=== PATIENT | female | born 1930 | race African-American/Black ===

== ENCOUNTER 2018-03-13 16:19 | Outpatient (CLI) | payer OTHER ==
[~2018-03-13 16:19] MED LIST: TENORMIN50 MG
== END 2018-03-13 16:32 | disposition home or self-care (01) ==
LOC: LAB 16:19
DX: N28.89 Other specified disorders of kidney and ureter (principal)

== ENCOUNTER 2022-02-05 13:45 | Outpatient (CLI) | payer OTHER | END 2022-02-05 13:59 | disposition home or self-care (01) | LOC: RAD 13:45 | PROVIDERS: ATTEND Internal Medicine Gastroenterology | DX: R10.33 Periumbilical pain (principal); K59.00 Constipation, unspecified ==